=== PATIENT | male | born 1965 | race Asian ===

== ENCOUNTER → 2017-07-18 | Outpatient (CLI) | payer BC ==
[~2017-07-18] MED LIST: NOCURR
[2017-07-18 09:52] LABS: BASOPHILS % (AUTO) 1.3 % (0.0-2.0); EOSINOPHILS % (AUTO) 4.5 % (1.0-6.0); HEMATOCRIT 35.5 % (41-53); HEMOGLOBIN 12.1 g/dL (13.5-17.5); LYMPHOCYTES % (AUTO) 20.2 % (22.0-44.0); MEAN CORPUSCULAR HEMOGLOBIN 29.8 pg (26.0-34.0); MEAN CORPUSCULAR VOLUME 87 fL (80-100); MONOCYTES # (AUTO) 0.5 K/uL (0.1-1.0); MONOCYTES % (AUTO) 10.3 % (2.0-9.0); NEUTROPHILS % (AUTO) 63.7 % (40.0-70.0); PLATELET COUNT (AUTO) 275 K/uL (150-450); RED BLOOD CELL COUNT(AUTO) 4.06 MIL/uL (4.50-5.90); RED CELL DISTRIBUTION WIDTH 14.7 % (11.5-14.5)
[2017-07-18 10:05] LABS: ALANINE AMINOTRANSFERASE 51 U/L (12-78); ALBUMIN 4.2 g/dL (3.4-5.0); ALKALINE PHOSPHATASE 41 U/L (46-116); ANION GAP 9 mmol/L (8-16); ASPARTATE AMINOTRANSFERASE 34 U/L (15-37); BILIRUBIN,TOTAL 0.5 mg/dL (0.1-1.0); CALCIUM, TOTAL 8.8 mg/dL (8.8-10.5); CARBON DIOXIDE 28 mmol/L (22-29); CHLORIDE 104 mmol/L (98-107); CHOLESTEROL 88 mg/dL (131-200); CREATININE 0.96 mg/dL (0.60-1.30); GLOMERULAR FILTR. RATE CALC > 60 mL/min (>60); GLUCOSE,RANDOM 111 mg/dL (70-110); HDL CHOLESTEROL 29 mg/dL (40-60); POTASSIUM 4.3 mmol/L (3.5-5.1); SODIUM SERUM 141 mmol/L (136-145); TOTAL PROTEIN, SERUM 7.6 g/dL (6.4-8.2); TRIGLYCERIDES 177 mg/dL (15-150); UREA NITROGEN, BLOOD 10 mg/dL (7-18)
[2017-07-18 10:06] LABS: LDL CHOL (CALC.) 24 mg/dL (0-130)
== END | disposition home or self-care (01) ==
LOC: LABPV 08:11
PROVIDERS: ATTEND Internal Medicine Cardiovascular Disease
DX: I11.0 Hypertensive heart disease with heart failure (principal); I50.9 Heart failure, unspecified; E11.8 Type 2 diabetes mellitus with unspecified complications; E55.9 Vitamin D deficiency, unspecified

== ENCOUNTER 2018-03-05 15:50 | Emergency (ER) | payer BC ==
[~2018-03-05] VITALS: Ht 170.2 cm; Wt 81.8 kg
[~2018-03-05 15:50] MED LIST changes: +AMLO-511 PO; +ASPI81TA42 PO; +ATOR40TA28 PO; +FERR-89 PO; +LOSA50TA25 PO; +METF-960 PO; +METO50 PO; +NITR.4 SL; -NOCURR; +PANT40TA25 PO
[2018-03-05 20:00] VITALS: BP 138/83
== END 2018-03-05 20:07 | disposition home or self-care (01) ==
LOC: EMS 15:51
DX: G51.0 Bell's palsy (principal); K21.9 Gastro-esophageal reflux disease without esophagitis; E78.00 Pure hypercholesterolemia, unspecified; E11.9 Type 2 diabetes mellitus without complications; I10 Essential (primary) hypertension; I25.119 Atherosclerotic heart disease of native coronary artery with unspecified angina pectoris; Z90.49 Acquired absence of other specified parts of digestive tract; Z79.82 Long term (current) use of aspirin; Z79.84 Long term (current) use of oral hypoglycemic drugs; Z79.899 Other long term (current) drug therapy
CPT/HCPCS: 70450; 99284

== ENCOUNTER 2025-04-23 21:41 | Emergency (ER) | payer SELFPAY ==
[~2025-04-23] VITALS: Ht 170.2 cm; Wt 81.8 kg
[~2025-04-23 21:41] MED LIST changes: +AMLO-257 PO; -AMLO-511 PO; +ASPI81TA40 PO; -ASPI81TA42 PO; -FERR-89 PO; +FERR325T27 PO; +LOSA-382 PO; -LOSA50TA25 PO; +METF-1211 PO; -METF-960 PO; -NITR.4 SL; +NITR0.4T52 SL; +PANT-31 PO; -PANT40TA25 PO
[2025-04-23 21:58] VITALS: TEMP 98.2
[2025-04-23 22:33] LABS: PLATELET COUNT (AUTO) 335 K/uL (150-450); RED BLOOD CELL COUNT(AUTO) 4.31 MIL/uL (4.50-5.90); RED CELL DISTRIBUTION WIDTH 20.5 % (11.5-14.5); WHITE BLOOD COUNT (AUTO) 6.5 K/uL (4.5-11.0)
[2025-04-23 22:37] LABS: CALCIUM, TOTAL 8.6 mg/dL (8.8-10.5); CREATININE 1.28 mg/dL (0.60-1.30); GLOMERULAR FILTR. RATE CALC 57.0 mL/min (>60); GLUCOSE,RANDOM 130.0 mg/dL (70-110); SODIUM SERUM 141.0 mmol/L (136-145); UREA NITROGEN, BLOOD 14.0 mg/dL (7-18)
[2025-04-23 23:00] LABS: APPEARANCE,URINE CLEAR (CLEAR); GLUCOSE, URINE (UA) NEGATIVE (NEGATIVE); LEUKOCYTE ESTERASE ,URINE NEGATIVE (NEGATIVE); NITRATE,URINE NEGATIVE (NEGATIVE); OCCULT BLOOD,URINE NEGATIVE (NEGATIVE); SPECIFIC GRAVITIY, URINE 1.025 (1.003-1.030)
[2025-04-23 23:01] LABS: RBC MORPHOLOGY COMMENT ABNORMAL RBC MORPH
[2025-04-23 23:03] LABS: PATHOLOGY REVIEW, DIFF YES
[2025-04-24 00:34] LABS: TROPONIN I-HIGH SENSITIVITY 7 ng/L (<76)
[2025-04-24 00:52] VITALS: BP 143/73; PULSE 71; RESP 16; O2SAT 100
== END 2025-04-24 02:19 | disposition home or self-care (01) ==
LOC: EDUNIT# 21:41 → EMS 21:43
DX: R10.84 Generalized abdominal pain (principal); E11.9 Type 2 diabetes mellitus without complications; E78.00 Pure hypercholesterolemia, unspecified; I10 Essential (primary) hypertension; I25.10 Atherosclerotic heart disease of native coronary artery without angina pectoris; K21.9 Gastro-esophageal reflux disease without esophagitis; F17.210 Nicotine dependence, cigarettes, uncomplicated; Z90.49 Acquired absence of other specified parts of digestive tract; Z79.82 Long term (current) use of aspirin; Z79.899 Other long term (current) drug therapy
CPT/HCPCS: 74176; 80048; 81003; 83690; 84484; 85025; 93005; 99284